=== PATIENT | female | born 1955 | race Asian ===

== ENCOUNTER 2020-04-09 19:46 | Emergency (ER) | payer BC ==
[~2020-04-09] VITALS: Ht 160 cm; Wt 103.4 kg
[~2020-04-09 19:46] MED LIST: ASA LO-DOSE81 MG OR; BENICAR HCT1 TAB PO; CIPR500T PO; DEXL60CA4 PO; ESTR0.6211 PO; GABA100C2 PO; JANUMET1 TAB PO; LIPITOR20 MG PO; LIPITOR40 MG PO; METF500T PO; MOBIC7.5 M1 OR; MULTIVITAMIN OR; PANT40TA PO; RYBIX ODT50 MG OR; SINGULAIR10 MG PO
[2020-04-09 21:30] VITALS: BP 150/82; TEMP 97.8
== END 2020-04-09 21:30 | disposition home or self-care (01) ==
LOC: ED 19:46
DX: S13.4XXA Sprain of ligaments of cervical spine, initial encounter (principal); V49.40XA Driver injured in collision with unspecified motor vehicles in traffic accident, initial encounter; Y92.89 Other specified places as the place of occurrence of the external cause
CPT/HCPCS: 96372; 99283; J1885

== ENCOUNTER 2020-06-05 18:25 | Emergency (ER) | payer BC, OTHER ==
[~2020-06-05] VITALS: Ht 160 cm; Wt 104.8 kg
[2020-06-05 19:54] LABS: PLATELET COUNT 298 K/uL (152-353)
[2020-06-05 21:55] VITALS: BP 142/76; TEMP 98.4
== END 2020-06-05 21:55 | disposition home or self-care (01) ==
LOC: ED 18:25
PROVIDERS: Emergency Medicine Emergency Medical Services
DX: S29.012A Strain of muscle and tendon of back wall of thorax, initial encounter (principal)
CPT/HCPCS: 80053; 81000; 83690; 85027; 96360; 96375; 99284; J1885; J2405

== ENCOUNTER 2020-11-12 14:37 | Outpatient (CLI) | payer BC | END 2020-11-12 22:19 | disposition home or self-care (01) | LOC: MAMMO 14:37 | PROVIDERS: ATTEND Nurse Practitioner Family | DX: Z12.31 Encounter for screening mammogram for malignant neoplasm of breast (principal) ==

== ENCOUNTER 2021-12-02 14:04 | Outpatient (CLI) | payer BC | END 2021-12-02 19:23 | disposition home or self-care (01) | LOC: MAMMO 14:04 | PROVIDERS: ATTEND Internal Medicine | DX: Z12.31 Encounter for screening mammogram for malignant neoplasm of breast (principal) ==

== ENCOUNTER 2022-01-12 15:48 | Outpatient (CLI) | payer BC | END 2022-01-12 18:54 | disposition home or self-care (01) | LOC: RAD 15:48 | PROVIDERS: ATTEND Nurse Practitioner Family | DX: M25.551 Pain in right hip (principal); M54.10 Radiculopathy, site unspecified; M79.89 Other specified soft tissue disorders; M79.604 Pain in right leg ==

== ENCOUNTER 2022-12-06 08:38 | Outpatient (CLI) | payer BC, OTHER | END 2022-12-06 21:51 | disposition home or self-care (01) | LOC: MAMMO 08:38 | PROVIDERS: ATTEND Nurse Practitioner Family | DX: Z12.31 Encounter for screening mammogram for malignant neoplasm of breast (principal) ==